=== PATIENT | female | born 1945 | race Caucasian/White ===

== ENCOUNTER → 2019-04-22 08:41 | Outpatient (CLI) | payer MEDICARE, SELFPAY ==
[2019-04-22 09:40] LABS: Absolute Lymphocyte Count 1.32 X10^3/uL (0.83-4.51); Absolute Neutrophil Count 2.2 X10^3/uL (2.0-7.7); Basophil# 0.03 X10^3/uL; Basophil% 0.8 % (0-1); Eosinophil# 0.05 X10^3/uL; Eosinophils% 1.3 % (0-5); Hematocrit 46.8 % (37-47); Hemoglobin 15.6 g/dL (12.0-15.0); Lymphocyte # 1.32 X10^3/ul (4.0); Lymphocyte % 33.4 % (19-41); Mean Corp Hgb Conc 33.3 g/dL (32-36); Mean Corpuscular Hgb 32.2 pg (27.0-32.0); Mean Corpuscular Volume 96.7 fL (81-99); Mean Platelet Vol. 13.4 fl (6.2-12.0); Monocyte# 0.36 X10^3/uL; Monocyte% 9.1 % (0-10); NRBC Flagged by Analyzer 0 % (0-5); Neutrophil # 2.18 X10^3/uL (2.7-7.7); Neutrophil % 55.1 % (47-70); Platelet Count 200 K/mm3 (150-450); RBC Distribution Width CV 11.5 % (11.6-14.6); RBC Distribution Width SD 41.1 fl (35.1-43.9); Red Blood Count 4.84 M/mm3 (4.2-5.4)
[2019-04-22 09:54] LABS: AST(SGOT) 23 U/L (15-37); Alanine Aminotransfer ALT/SGPT 20 U/L (13-56); Albumin, Serum 3.6 g/dL (3.2-5.0); Alkaline Phosphatase 61 U/L (45-117); Anion Gap 7 (5-15); BUN 16 mg/dL (7-18); BUN/Creat Ratio 22.1 RATIO (10-20); Chloride 107 mmol/L (98-107); Cholesterol 214 mg/dL (200); Creatinine, Serum 0.72 mg/dL (0.55-1.02); EST Glomerular Filtration Rate 84 mL/min (>60); Est Glom Filt Rate - Afr Amer 101 mL/min (>60); Globulin 3.5 g/dL (2.2-4.2); Glucose 96 mg/dL (74-106); High Density Lipoprotein 66 mg/dL; Potassium 3.6 mmol/L (3.5-5.1); Protein, Total 7.1 g/dL (6.4-8.2); Sodium Level 143 mmol/L (136-145); Triglycerides 81 mg/dL; Very Low Density Lipoprotein 16 mg/dL (5-40)
== END ==
PROVIDERS: Family Provider Family Medicine; PCP Family Medicine; Referring Provider Family Medicine; Visit Provider Family Medicine
DX: Z00.00 Encounter for general adult medical examination without abnormal findings (principal); I10 Essential (primary) hypertension
CPT/HCPCS: 36415; 80053; 80061; 85025

== ENCOUNTER 2021-09-25 09:16 | Outpatient (CLI) | payer MEDICARE, SELFPAY ==
--- NOTE | 2021-09-25 09:26 | US_ITS ---
STUDY: ULTRASOUND OF THE FEMALE PELVIS - COMPLETE REASON FOR EXAM: Female, 75 years old. Vaginal discharge. LMP: The patient is postmenopausal. TECHNIQUE: Transabdominal TECHNICAL QUALITY: Adequate. COMPARISON: None. FINDINGS: The uterus is anteverted and is in a midline position. The uterus measures 7.5 cm x 4.4 cm x 3.3 cm. Normal uterine cervix. The endometrium is thickened and measures 7.2 mm in thickness, and is hyperechoic. There is no demonstrated endometrial mass. There is a 1.3 cm x 1 cm x 0.7 cm fibroid in the body of the uterus. I.U.D. - The patient does not have an I.U.D. The right ovary is non-visualized. The left ovary is visualized. The left ovary measures 2 cm x 1.9 cm x 1.3 cm. There is no left ovarian cyst or ovarian mass. There is no visualized left adnexal mass or complex lesion. There is normal arterial and normal venous vascularity. There is no fluid in the cul-de-sac. The pre void volume of the bladder was 253 ml. US/Pelvic (Non ) IMPRESSION: Thickened endometrium measuring 7.2 mm. Small uterine fibroid. Electronically Signed: Bernard Pal MD at 12:35 EST ,
== END 2021-09-25 23:59 | disposition home or self-care (01) ==
LOC: US 09:21
PROVIDERS: PCP Family Medicine; Referring Provider Family Medicine; Visit Provider Family Medicine
DX: N89.8 Other specified noninflammatory disorders of vagina (principal); D25.9 Leiomyoma of uterus, unspecified; R93.89 Abnormal findings on diagnostic imaging of other specified body structures
CPT/HCPCS: 76856

== ENCOUNTER 2021-11-08 16:11 | Outpatient (CLI) | payer MEDICARE, SELFPAY ==
--- NOTE | 2021-11-08 | IMM_PTH ---
PATIENT: RAGHU DURAN LOC: [facility] U#:[id number] AGE/SX: 76/F ROOM: RE11/08/[address]: Dr. Jessica Calderon MD : 1945 BED: DIS: 11/08/2021 SPEC #: [id number] RECD: 11/12/21 12:27 STATUS: TARSHA REQ #: [id number] INDRA: 11/08/21 00:[address]: Jessica Calderon DEPT: IMMUNOHISTOCHEMISTRY RECD BY: Sarah Hu ENTERED: 11/12/21 12:28 SP TYPE: IMMUNO OTHR DR: Dr. Lora Salazar MD Tissues: Endometrium, NOS Procedures: CK14 (add) CK5-6 (add) KI-67 (add) P16 (add) P40 (add) Vimentin (initial) PHYSICIAN & INSTITUTION [place] [id number] SPECIMEN INFORMATION: Tissue Source: Endometrial biopsy Clinical Info: Abnormal uterine bleeding Specimen Number: [id number] CPT code: 07265, 23090 x5 METHODOLOGY: Deparaffinized sections of prefer/formalin-fixed tissue or PAP/DQ stained slides are incubated with monoclonal/polyclonal antibodies/oligonucleotide probes. Localization is made via biotin free immunoperoxidase method. Appropriate controls are performed and reacted as expected. Results on target cell population are indicated in the following table: RESULTS: ANTIBODY / CLONE RESULT Vimentin (V9) negative CK5-6 (D5 & 1684) positive CK14 (LL002) negative P40 (BC28) negative P16 (E6H4) positive, focal Ki-67 (30-9) positive, low These tests were developed and their performance characteristics determined by [facility]. They may not have been cleared or approved by the U.S. Food and Drug Administration. The FDA has determined that such clearance or approval is not necessary. The above immunohistochemical/dualISH markers are ordered and reviewed by the Pathologist. INTERPRETATION: Endometrium, biopsy: Detached atypical epithelial cells with squamoid features. AM:barry 11/13/2021
--- NOTE | 2021-11-08 | EMB_PTH ---
PATIENT: RAGHU DURAN LOC: [facility] U#:[id number] AGE/SX: 76/F ROOM: RE11/08/[address]: Dr. Jessica Calderon MD : 1945 BED: DIS: 11/08/2021 SPEC #: [id number] RECD: 11/08/21 16:05 STATUS: TARSHA MARTINEZ #: [id number] INDRA: 11/08/21 00:[address]: Jessica Calderon DEPT: SURGICAL PATHOLOGY RECD BY: Macario Anaya ENTERED: 11/09/21 10:45 SP TYPE: ENDOM BX/C ARIAN DR: Dr. Lora Salazar MD Tissues: Endometrium, NOS Procedures: Surgery Specimen Level IV HEADER OPERATION: Endometrial biopsy PRE-OP DIAGNOSIS: Abnormal uterine bleeding TISSUE SUBMITTED: Endometrial biopsy MICROSCOPIC DIAGNOSIS Endometrium, biopsy: Detached scant highly atypical epithelial cells with squamoid features Rare strips of benign superficial glandular mucosa. See comment. AM:barry 11/12/2021 COMMENT Immunohistochemistry ([id number]) supports the above diagnosis. Clinical correlation is necessary. Case has been reviewed in consultation with Dr. Elkins who concurs with the above diagnosis. IDC:KIMBERLY MICROSCOPIC DESCRIPTION Slides are reviewed. GROSS DESCRIPTION Received in fixative is one container labeled with the patient's name and designated endometrial biopsy. The specimen consists of multiple irregular fragments of rico mucoid tissue that in aggregate measure 1 x 1 x 0.2 cm. The specimen is totally submitted in one cassette. / KIMBERLY:barry 11/09/2021 TC:0 CPT: 47697
== END 2021-11-08 23:59 | disposition home or self-care (01) ==
LOC: LABSPEC 16:13
PROVIDERS: PCP Family Medicine; Visit Provider Obstetrics & Gynecology
DX: N93.9 Abnormal uterine and vaginal bleeding, unspecified (principal)
CPT/HCPCS: 88305; 88341; 88342

== ENCOUNTER 2022-01-22 10:02 | Day surgery (SDC) | payer MEDICARE, SELFPAY ==
[2022-01-22] VITALS (7 sets, daily range): BP systolic 122–156; BP diastolic 66–81; PULSE 57–71; RESP 16–18; TEMP 36.4–36.5; O2SAT 93–100; BMI 23.6
--- NOTE | 2022-01-22 | IMM_PTH ---
PATIENT: RAGHU DURAN LOC: [facility] [place] U#:[id number] AGE/SX: 76/F ROOM: RE01/22/[address]: Dr. Jessica Calderon MD : 1945 BED: DIS: 01/22/2022 SPEC #: [id number] RECD: 01/23/22 13:41 STATUS: TARSHA REKathrin #: [id number] INDRA: 01/22/22 00:[address]: Jessica Calderon DEPT: IMMUNOHISTOCHEMISTRY RECD BY: Sarah Hu ENTERED: 01/23/22 13:42 SP TYPE: IMMUNO OTHR DR: Dr. Lora Salazar MD Tissues: A - Uterine cervix, NOS Procedures: p16 (initial) KI-67 (add) P16 (add) PHYSICIAN & INSTITUTION [place] [id number] SPECIMEN INFORMATION: Tissue Source: A - Cervix Clinical Info: Atypical squamous cell changes, favor dysplasia, LGSIL Specimen Number: [id number] A2 & A5 CPT code: 27181, 99184 x3 METHODOLOGY: Deparaffinized sections of prefer/formalin-fixed tissue or PAP/DQ stained slides are incubated with monoclonal/polyclonal antibodies/oligonucleotide probes. Localization is made via biotin free immunoperoxidase method. Appropriate controls are performed and reacted as expected. Results on target cell population are indicated in the following table: RESULTS: ANTIBODY / CLONE RESULT Block A2 P16 (E6H4) positive, block-like Ki-67 (30-9) positive, moderate to high Block A5 P16 (E6H4) positive, block-like Ki-67 (30-9) positive, moderate to high These tests were developed and their performance characteristics determined by [facility]. They may not have been cleared or approved by the U.S. Food and Drug Administration. The FDA has determined that such clearance or approval is not necessary. The above immunohistochemical/dualISH markers are ordered and reviewed by the Pathologist. INTERPRETATION: A. Cervix, LEEP conization: Moderate to severe squamous dysplasia, THEODORA II-III (HSIL). AM:barry 01/24/2022
--- NOTE | 2022-01-22 | CER_PTH ---
PATIENT: RAGHU DURAN LOC: [facility] [place] U#:[id number] AGE/SX: 76/F ROOM: RE01/22/[address]: Dr. Jessica Calderon MD : 1945 BED: DIS: 01/22/2022 SPEC #: [id number] RECD: 01/22/22 13:32 STATUS: TARSHA MARTINEZ #: [id number] INDRA: 01/22/22 00:[address]: Jessica Calderon DEPT: SURGICAL PATHOLOGY RECD BY: Macario Anaya ENTERED: 01/22/22 13:32 SP TYPE: CERV OTHR DR: Dr. Lora Salazar MD Tissues: A - Uterine cervix, NOS B - Endometrium, NOS Procedures: Surgery Specimen Level IV HEADER OPERATION: LEEP cone PRE-OP DIAGNOSIS: Atypical squamous cell changes cervix of undetermined significance, favor dysplasia; LGSIL TISSUE SUBMITTED: A ? Cervix, B ? Endometrial curettings MICROSCOPIC DIAGNOSIS A. Cervix, LEEP conization: Moderate to severe squamous dysplasia with extension into endocervical glands (THEODORA II-III). Margins of excision are free of dysplasia. See comment. B. Endometrium, curettings: Rare detached fragments of epithelial cells with severe squamous dysplasia. AM:barry 01/23/2022 COMMENT A. Results from immunohistochemistry ([id number]) for surrogate HPV marker (p16) will be reported separately. Reference is made to the patient's previous endometrial biopsy ([id number]) in which detached scant highly atypical epithelial cells with squamoid features were identified. Case has been reviewed in consultation with Dr. Elkins who concurs with the above diagnosis. IDC:SJ MICROSCOPIC DESCRIPTION Slides are reviewed. GROSS DESCRIPTION A - Received in fixative is one container labeled with the patient's name and designated cervix. The specimen consists of a piece of rico, indurated tissue consistent with LEEP conization measuring 2 x 2.2 x 1.5 cm. No mucosal lesion is identified. Nonmucosal surface is inked black. The endocervical resection margin is inked blue. The specimen is not oriented. Also present in the container is a detached piece of rico soft tissue measuring 1 x 0.5 x 0.1 cm. Sections of the cervix reveal multiple cysts filled with mucoid material. Sensitizer sections are submitted in five cassettes as follows: 1 ? detached piece of tissue bisected, 2-5 ? cone biopsy specimen with each cassette containing one quadrant. B. Received in fixative is one container labeled with the patient's name and designated endometrial curettings. The specimen consists of multiple fragments of hemorrhagic mucoid tissue that in aggregate measure 1.5 x 1.5 x 0.2 cm. The specimen is totally submitted in one cassette. / SJ:rg 01/22/2022 TC:0 CPT: 74699 , 57871
--- NOTE | 2022-01-22 07:39 | HP.PCM_ITS ---
History and Physical Intake Visit Reasons:?biopsy FU Chief Complaint: biopsy follow up Associate Technician Required: No Is patient in pain?: No Allergies codeine Adverse Reaction (Unknown, Verified 11/08/21 13:28) unknowncortisone Adverse Reaction (Unknown, Verified 11/08/21 13:28) irregular mensesnaproxen [From Naprosyn] Adverse Reaction (Unknown, Verified 11/08/21 13:28) hives Medications NK? 11/08/21 [History Confirmed 11/26/21] Is last menstrual period known: No Post menopausal: Yes Patient : No : No PFSH Surgical History? H/O dilation and curettage H/O right heart catheterization Family History? Father Congestive heart failure (CHF) Social History? Smoking Status:? Never smoker alcohol intake:? never substance use type:? does not use caffeine:? Yes seatbelt use:? always do you feel safe at home:? Yes additional social history:? Bobby- Both are retired ? HPI biopsy FU Details: RAGHU DURAN is a 76 year old who presents for follow up of biopsy results.? colposcopy visually showed low grade but an EMB showed normal lining of the uterus with highly atypical squamous cells present.? she initially was evaluated for bloody discharge by her PCP and had an LGSIL pap. she denies any further bleeding or abnormal discharge, denies any pelvic pressure or pain.? she is asymptomatic at this time. Pregancy History ? ? ? 2 ? Elective abortions ? ? ? 0 Hx Para ? ? ? 2 ? Spontaneous abortions ? ? ? 0 Hx # Term Pregnancies ? ? ? 2 ? Ectopic pregnanciesA ? ? ? 0 Hx # Pregnancies ? ? ? 0 ? Multiple births ? ? ? 0 ? # of living children ? ? ? 2 ROS Const Constitutional: Reports system reviewed and no additional complaints, except as documented; Denies chills, fever(s), weight gain or weight loss GI GI: Reports as per HPI; Denies abdominal pain, bloating, constipation, cramping, nausea or vomiting : Reports as per HPI; Denies urinary frequency, urinary incontinence, urinary urgency, vaginal discharge or vaginal dryness Exam Const General: cooperative, healthy appearing, comfortable, no acute distress and well developed Orientation: alert HENWI Head: normal to inspection and normocephalic Ears: hearing grossly normal bilaterally and external ears normal Nose: external nose normal and nares normal Face and sinus: normal facial exam Neck Neck: normal visual inspection, no lymphadenopathy and trachea midline Thyroid: thyroid normal Resp Effort & Inspection: normal respiratory effort Musc Other: gross motor intact no deficits, full bilateral strength Skin General: no rashes or lesions noted Neuro Motor: muscle tone normal throughout Coding Level of Care Code Off vis,est,level 4 Diagnoses Atypical squamous cell changes cervix of undetermined significance favor dysplasia? R87.610 LGSIL (low grade squamous intraepithelial dysplasia)? Assessment and Plan Assessment and Plan (1) Atypical squamous cell changes cervix of undetermined significance favor dysplasia: ?Status:?Acute ?Comment: highly atypical cells on biopsy, proceed with LEEP (2) LGSIL (low grade squamous intraepithelial dysplasia): ?Status:?Acute ?Comment: biopsy highly atypical squamous cells proceed with LEEP ?Plan - Dr. Jessica Calderon MD: After discussing the patient's diagnosis and treatment plan options, patient wishes to proceed with surgical management.? I have discussed with the patient the risks, benefits, and alternatives of the procedure which include but are not limited to risks of anesthesia, bleeding, infection, possible damage to bowel, bladder, or surrounding vasculature which could lead to additional surgery to evaluate any complications.? Patient agrees to procedure and wishes to proceed.? ACOG/uptodate references given for additional information regarding procedure.? UPDATE- I have seen the patient and performed any clinically relevant updates to the history and physical exam. Jessica Calderon MD
--- NOTE | 2022-01-22 10:22 | EKG12_ITS ---
Test Reason : PRE OP Blood Pressure : / mmHG Vent. Rate : 076 BPM Atrial Rate : 076 BPM P-R Int : 140 ms QRS Dur : 084 ms QT Int : 394 ms P-R-T Axes : 066 019 049 degrees QTc Int : 443 ms Normal sinus rhythm Normal ECG Confirmed by LAMONTE FINNEGAN, ZABRINA ([id number]), deputy editor in chief ANA MARIA MCCARTHY ([id number]) on 01/25/2022 11:50:33 AM Referred By: Jessica Calderon Confirmed By:ZABRINA ABURTO MD
[2022-01-22] MEDS: Lactated Ringers 1,000 ML 15 ML IV (11:12)
[2022-01-22 11:16] LABS: Absolute Lymphocyte Count 1.02 X10^3/uL (0.83-4.51); Absolute Neutrophil Count 4.4 X10^3/uL (2.0-7.7); Basophil# 0.03 X10^3/uL; Basophil% 0.5 % (0-1); Eosinophil# 0.01 X10^3/uL; Eosinophils% 0.2 % (0-5); Hemoglobin 15.9 g/dL (12.0-15.0); Lymphocyte # 1.02 X10^3/ul (0.83-4.51); Lymphocyte % 17.6 % (19-41); Mean Corp Hgb Conc 33.8 g/dL (32-36); Mean Corpuscular Hgb 31.5 pg (27.0-32.0); Mean Corpuscular Volume 93.3 fL (81-99); Mean Platelet Vol. 12.6 fl (6.2-12.0); Monocyte# 0.28 X10^3/uL; Monocyte% 4.8 % (0-10); NRBC Flagged by Analyzer 0 % (0-5); Neutrophil # 4.42 X10^3/uL (2.7-7.7); Neutrophil % 76.6 % (47-70); Platelet Count 220 K/mm3 (150-450); RBC Distribution Width CV 11.9 % (11.6-14.6); RBC Distribution Width SD 41.1 fl (35.1-43.9); Red Blood Count 5.04 M/mm3 (4.2-5.4); White Blood Count 5.8 K/mm3 (4.4-11.0)
[2022-01-22 12:19] LABS: AST(SGOT) 23 U/L (15-37); Alanine Aminotransfer ALT/SGPT 20 U/L (13-56); Albumin, Serum 3.8 g/dL (3.2-5.0); Alkaline Phosphatase 65 U/L (45-117); Anion Gap 6 (5-15); BUN 14 mg/dL (7-18); Calcium,Total 9.5 mg/dL (8.5-10.1); Chloride 106 mmol/L (98-107); Creatinine, Serum 0.74 mg/dL (0.55-1.02); EST Glomerular Filtration Rate 81 mL/min (>60); Est Glom Filt Rate - Afr Amer 98 mL/min (>60); Estimated Creatinine Clearance 40.68 ml/min; Globulin 3.8 g/dL (2.2-4.2); Glucose 101 mg/dL (74-106); Potassium 3.9 mmol/L (3.5-5.1); Protein, Total 7.6 g/dL (6.4-8.2); Sodium Level 142 mmol/L (136-145)
[2022-01-22] MEDS: Lidocaine 1% (50 ml mdv) 50 ML Vial (12:32)
[2022-01-22] MEDS: Iodine/Potassium Iodide 14ML Bottle 1 DRP TOPICAL (12:33)
[2022-01-22] MEDS: FERRIC SUBSULFATE 8 GM SOLN (12:39)
--- NOTE | 2022-01-22 12:40 | PCM.OPRPT ---
Problems Associated Problem List Diagnoses (1) LGSIL (low grade squamous intraepithelial dysplasia): (2) Atypical squamous cell changes cervix of undetermined significance favor dysplasia: Report of Operation Pre-Operative Diagnosis: see problem list Post-Operative Diagnosis: same Surgery/Procedure Performed:: LEEP procedure Description of Surgical Findings:: grossly nl cervix mechanical integrity engineer: None Type of Anesthesia: General and Local Special Medications: monsels paste Specimen's removed: cervix ecc Drains: none Estimated Blood Loss (mL): 50 Fluids Replaced: crystalloid Description of Procedure: Paracervical block was placed with 1% lidocaine and using a loop electrode the outer part of the cervix was removed including the squamocolumnar junction. Endocervical curettings were taken and the base of the cervix was cauterized around the borders and the base to obtain excellent hemostasis. Monsel's paste was placed and patient was awoken and taken recovery in stable condition. Grafts/Implants Used: none Complications none Admit VTE Documentation VTE Present on Admission: No VTE Mechan Device Prophylaxis: SCD's Multi Select Codes Urinary/Genital Urinary/Genital CPT Codes: 98897 Endocervical curettage and 73310 LEEP
--- NOTE | 2022-01-22 12:41 | DCINST_ITS ---
Discharge Instructions Procedure LEEP Diet Discharge Diet: No restrictions Activity Discharge Activity: Return to Normal Activity and May Not Drive (while taking narcotic pain medications.) May resume sexual activity in: 4 weeks (Nothing in the vagina for 4 weeks.) Dressing / Incision Call your doctor if you observe: Fever of 101 or Higher and Using more than 1 pad per hour Follow Up Care Please Follow Up With: Jessica Calderon MD When: Call [phone] for follow-up appointment. Test Results: Test results from this visit will be discussed in further detail at your follow- up appointment, if applicable. Discharge Plan Admission Attending Provider: Jessica Calderon Primary Care Provider: Lora Salazar Discharge Orders/Prescriptions Prescriptions: No Action NK Referrals / Follow Up: Lora Salazar MD [Primary Care Provider] - Disposition Disposition (needs filled in before D/C Order can be placed): Home, Self Care
[2022-01-22] MEDS: Ketorolac 30 MG/ML Syringe IV (13:10)
== END 2022-01-22 14:12 | disposition home or self-care (01) ==
LOC: SDC 10:05 → AC 10:06
PROVIDERS: PCP Family Medicine; Referring Provider Obstetrics & Gynecology; Visit Provider Obstetrics & Gynecology
PROC: 0UBC7ZZ Excision of Cervix, Via Natural or Artificial Opening (ICD-10-PCS; CPT 57522; principal; 2022-01-22 12:00)
DX: D06.0 Carcinoma in situ of endocervix (principal)
CPT/HCPCS: 57522; 00940; 80053; 85025; 86850; 86900; 86901; 88305; 88341; 88342; 93005; J7120; J2405

== ENCOUNTER → 2023-01-10 | Outpatient (CLI) | payer MEDICARE, SELFPAY ==
[2023-01-16 13:07] LABS: HPV APTIMA, High Risk Negative (Negative)
== END | disposition home or self-care (01) ==
LOC: LABSPEC 15:21
PROVIDERS: PCP Family Medicine; Referring Provider Family Medicine; Visit Provider Family Medicine
DX: Z12.4 Encounter for screening for malignant neoplasm of cervix (principal); R87 Abnormal findings in specimens from female genital organs
CPT/HCPCS: 87624; 88175; G0145

== ENCOUNTER → 2023-06-13 | Outpatient (CLI) | payer MEDICARE, SELFPAY ==
[2023-06-13 15:20] LABS: Absolute Lymphocyte Count 1.11 X10^3/uL (0.83-4.51); Absolute Neutrophil Count 4.4 X10^3/uL (2.0-7.7); Basophil# 0.02 X10^3/uL; Basophil% 0.3 % (0-1); Eosinophil# 0.03 X10^3/uL; Eosinophils% 0.5 % (0-5); Hematocrit 43.7 % (37-47); Lymphocyte # 1.11 X10^3/ul (0.83-4.51); Lymphocyte % 18.2 % (19-41); Mean Corpuscular Hgb 31.3 pg (27.0-32.0); Mean Corpuscular Volume 97.5 fL (81-99); Mean Platelet Vol. 14.1 fl (6.2-12.0); Monocyte# 0.46 X10^3/uL; Monocyte% 7.5 % (0-10); NRBC Flagged by Analyzer 0 % (0-5); Neutrophil % 72.2 % (47-70); Platelet Count 197 K/mm3 (150-450); RBC Distribution Width CV 11.9 % (11.6-14.6); Red Blood Count 4.48 M/mm3 (4.2-5.4); White Blood Count 6.1 K/mm3 (4.4-11.0)
[2023-06-13 15:39] LABS: Anion Gap 3 (5-15); BUN 21 mg/dL (7-18); BUN/Creat Ratio 31.3 RATIO (10-20); Calcium,Total 8.8 mg/dL (8.5-10.1); Chloride 107 mmol/L (98-107); Creatinine, Serum 0.67 mg/dL (0.55-1.02); EST Glomerular Filtration Rate 90 mL/min (>60); Est Glom Filt Rate - Afr Amer 109 mL/min (>60); Glucose 97 mg/dL (74-106); Potassium 3.7 mmol/L (3.5-5.1); Sodium Level 140 mmol/L (136-145)
== END | disposition home or self-care (01) ==
LOC: BFHLAB 14:02
PROVIDERS: PCP Family Medicine; Referring Provider Family Medicine; Visit Provider Family Medicine
DX: I10 Essential (primary) hypertension (principal)
CPT/HCPCS: 36415; 80048; 85025

== ENCOUNTER → 2024-01-20 | Outpatient (CLI) | payer MEDICARE, SELFPAY ==
[2024-01-26 21:54] LABS: HPV Reflexed? NOT INDICATED
== END | disposition home or self-care (01) ==
LOC: LABSPEC 15:20
PROVIDERS: PCP Family Medicine; Referring Provider Family Medicine; Visit Provider Family Medicine
DX: Z12.4 Encounter for screening for malignant neoplasm of cervix (principal)
CPT/HCPCS: 88175; G0145

== ENCOUNTER → 2024-06-17 | Outpatient (CLI) | payer MEDICARE, SELFPAY ==
[2024-06-17 17:52] LABS: Absolute Lymphocyte Count 1.06 X10^3/uL (0.83-4.51); Basophil# 0.03 X10^3/uL; Basophil% 0.5 % (0-1); Eosinophil# 0.04 X10^3/uL; Eosinophils% 0.7 % (0-5); Hematocrit 43.2 % (37-47); Hemoglobin 14.4 g/dL (12.0-15.0); Lymphocyte # 1.06 X10^3/ul (0.83-4.51); Lymphocyte % 19.1 % (19-41); Mean Corp Hgb Conc 33.3 g/dL (32-36); Mean Corpuscular Hgb 31.7 pg (27.0-32.0); Mean Corpuscular Volume 95.2 fL (81-99); Monocyte# 0.43 X10^3/uL; Monocyte% 7.7 % (0-10); NRBC Flagged by Analyzer 0 % (0-5); Neutrophil # 3.97 X10^3/uL (2.7-7.7); Neutrophil % 71.5 % (47-70); Platelet Count 177 K/mm3 (150-450); Red Blood Count 4.54 M/mm3 (4.2-5.4); White Blood Count 5.6 K/mm3 (4.4-11.0)
[2024-06-17 18:03] LABS: Anion Gap 7 (5-15); BUN 17 mg/dL (7-18); BUN/Creat Ratio 24.2 RATIO (10-20); Calcium,Total 9.2 mg/dL (8.5-10.1); Chloride 105 mmol/L (98-107); EST Glomerular Filtration Rate 85 mL/min (>60); Est Glom Filt Rate - Afr Amer 103 mL/min (>60); Glucose 97 mg/dL (74-106); Potassium 3.4 mmol/L (3.5-5.1); Sodium Level 139 mmol/L (136-145)
== END | disposition home or self-care (01) ==
LOC: BFHLAB 14:15
PROVIDERS: PCP Family Medicine; Referring Provider Family Medicine; Visit Provider Family Medicine
DX: I10 Essential (primary) hypertension (principal)
CPT/HCPCS: 36415; 80048; 85025

== ENCOUNTER → 2025-01-20 | Outpatient (CLI) | payer MEDICARE, SELFPAY ==
[2025-01-25 10:08] LABS: HPV APTIMA, High Risk Negative (Negative)
== END | disposition home or self-care (01) ==
PROVIDERS: PCP Family Medicine; Visit Provider Family Medicine
DX: Z12.4 Encounter for screening for malignant neoplasm of cervix (principal); D06.9 Carcinoma in situ of cervix, unspecified
CPT/HCPCS: 88175; G0145

== ENCOUNTER → 2025-06-21 | Outpatient (CLI) | payer MEDICARE, SELFPAY ==
[2025-06-21 15:23] LABS: Hematocrit 45.7 % (37-47); Hemoglobin 15.1 g/dL (12.0-15.0); Immature Granulocytes Count 0.010 X10^3/uL (0.0-0.0); Mean Corp Hgb Conc 33.0 g/dL (32-36); Mean Corpuscular Volume 96.8 fL (81-99); NRBC Flagged by Analyzer 0 % (0-5); Platelet Count 174 K/mm3 (150-450); RBC Distribution Width CV 11.9 % (11.6-14.6); RBC Distribution Width SD 42.9 fl (35.1-43.9); Red Blood Count 4.72 M/mm3 (4.2-5.4); White Blood Count 5.1 K/mm3 (4.4-11.0)
[2025-06-21 15:41] LABS: Anion Gap 11 (5-15); BUN 14 mg/dL (4-19); BUN/Creat Ratio 20.0 RATIO (10-20); Calcium,Total 9.5 mg/dL (7.6-11.0); Carbon Dioxide 26.4 mmol/L (21.0-32.0); Chloride 105 mmol/L (98-108); Glucose 100 mg/dL (70-99); Potassium 3.8 mmol/L (3.3-5.1)
--- OUTSIDE RECORDS SUMMARY | 2025-06-21 16:02 | XMS RPT_ITS | CCD ---
Author Organization [facility] Care Team Providers Care Bus Operator Name Role Phone Dr. Lora Salazar Primary Care Provider Dr. Lora Salazar Attending Provider [phone] Dr. Lora Salazar Referring Provider [phone] Dr. Jessica Calderon Attending Provider [phone] Dr. Lora Salazar Primary Care Provider Dr. Lora Salazar Attending Provider [phone] Dr. Jessica Calderon Other Provider [phone] ERICKA CHAVIRA DPOpal Admitting Unavailable LORA SALAZAR Consulting Unavailable ERICKA CHAVIRA DPOpal Attending Unavailable ERICKA CHAVIRA DPM Primary Care Unavailable PROVIDER, UNKNOWN Consulting Unavailable PROVIDER, UNKNOWN Consulting Unavailable Dr. Lora Salazar MD Primary Care Provider Dr. Lora Salazar MD Attending Provider Lora Salazar Attending Unavailable Lora Salazar Referring Unavailable Lora Salazar Primary Care Unavailable Lora Salazar Attending Unavailable Lora Salazar Primary Care Unavailable Allergies Allergy Classification Reported Allergen(s) Allergy Type Date of Onset Reaction(s) Facility (5 sources) Codeine Drug Allergy 2 unknown [facility] (5 sources) [facility] Naproxen Drug Allergy 2 hives [facility] (1 source) Codeine Drug Allergy 2 [facility] (1 source) Cortisone Drug Allergy 2 [facility] (1 source) Naproxen Drug Allergy 2 [facility] Problems Problem Classification Problem Date Documented Date Episodic/Chronic Cancer of cervix (6 sources) Cervical atypism; Translations: [Atypical squamous cells of undetermined significance on cytologic smear of cervix (ASC-US)] Episodic Comment on above: highly atypical cell s on biopsy, proceed with LEEP, THEODORA III with margins clear Essential hypertension (4 sources) Hypertensive disorder; Translations: [Essential (primary) hypertension] Onset: 07-14-2024 02-14-2022 Chronic Comment on above: HX OF TAKING HCTZ. P T TOOK HERSELF OFF OF, encouraged to restart and fu with PCP Menopausal disorders (7 sources) Postmenopausal bleeding; Translations: [Postmenopausal bleeding] Chronic Comment on above: emb done, US showed 7 mm lining. Other screening for suspected conditions (not mental disorders or infectious disease) (1 source) Encounter for screening for malignant neoplasm of cervix; Translations: [Encounter for screening for malignant neoplasm of cervix] Onset: 01-26-2025 Episodic Residual codes; unclassified (9 sources) Abnormal cytology findings; Translations: [Low grade squamous intraepithelial lesion (LGSIL)] Episodic Comment on above: biopsy highly atypic al squamous cells proceed with LEEP, THEODORA III with margins clear Residual codes; unclassified (3 sources) History of loop electrosurgical excision procedure; Translations: [Other specified postprocedural states] 02-14-2022 Episodic Comment on above: THEODORA III on path, rep eat pap in 1 year. needs to continue pap screening per standard recommendations indefinitely Results Test Name Value Interpretation Reference Range Facility PAP IG HPV HR APTIMAon 01-25 ADEQ Comment Normal . [facility] Comment on above: Order Comment: Speci men Comment: No. of containers..01 ThinPrep Vial Result Comment: Sati sfactory for evaluation. Endocervical component may not be distinguished in cases of atrophy. Performed By: #### L 7400.0377 #### [facility] [address] [place], [address] COMM . Normal . [facility] Comment on above: Order Comment: Speci men Comment: No. of containers..01 ThinPrep Vial Performed By: #### L 7400.0377 #### [facility] [address] [place], [place], [id number] COMMENT Comment Normal . [facility] Comment on above: Order Comment: Speci men Comment: No. of containers..01 ThinPrep Vial Result Comment: This liquid based ThinPrep(R) pap test was screened with the use of an image guided system. Performed By: #### L 7400.0377 #### [facility] [address] [place], [address] DIAG Comment Normal . [facility] Comment on above: Order Comment: Speci men Comment: No. of containers..01 ThinPrep Vial Result Comment: NEGA TIVE FOR INTRAEPITHELIAL LESION OR MALIGNANCY. CELLULAR CHANGES ASSOCIATED WITH ATROPHY ARE PRESENT. Performed By: #### L 7400.0377 #### [facility] [address] [place], [address] HPV APTIMA, HR Negative Normal Negative [facility] Comment on above: Order Comment: Speci men Comment: No. of containers..01 ThinPrep Vial Result Comment: This nucleic acid amplification test detects fourteen high- risk HPV types (16,18,31,33,35,39,45,51,52,56,58,59,66,68) without differentiation. Performed at: [address] [id number] Screen Printing Machine Loader Unloader: Renetta Denson MD, Phone: [phone] Performed at: = - [address] [id number] [employer] Printing Machine Loader Unloader: Renetta Denson MD, Phone: [phone] Performed By: #### L 7400.0377 #### [facility] [address] [place], [place], [address] PAPSMR Comment Normal . [facility] Comment on above: Order Comment: Speci men Comment: No. of containers..01 ThinPrep Vial Result Comment: The Pap smear is a screening test designed to aid in the detection of premalignant and malignant conditions of the uterine cervix. It is not a diagnostic procedure and should not be used as the sole means of detecting cervical cancer. Both false-positive and false-negative reports do occur. Performed By: #### L 7400.0377 #### [facility] [address] [place], [place], [address] PERFORM Comment Normal . [facility] Comment on above: Order Comment: Speci men Comment: No. of containers..01 ThinPrep Vial Result Comment: Lorraine Gray, Senior Linux Administrator Performed By: #### L 7400.0377 #### [facility] [address] [place], [place], [id number] Cervical or vagninal specime n microscopic examination by cytology stain (reported asOrdered By: Lora Salazar on 01-20-2025 Cytology report Cyto stain Doc (Cvx/Vag) Comment . [facility] Comment on above: The Pap smear is a s creening test designed to aid in thedetection of premalignant and malignant conditions of theuterine cervix. It is not a diagnostic procedure andshould not be used as the sole means of detecting cervicalcancer. Both false-positive and false-negative reports dooccur. Detection in cervical specim en of any of human papilloma virus (HPV) 16, 18, 31, 33,Ordered By: Lora Salazar on 01-20-2025 HPV 16+18+31+33+35+39+45+5 1+52+56+58+59+66+68 DNA Probe+sig amp Ql (Cvx) Negative Negative [facility] Comment on above: This nucleic acid am plification test detects fourteen high- risk HPV types (16,18,31,33,35,39,45,51,52,56,58,59,66,68)without differentiation.Performed at: [address] [id number] Director: Renetta Denson MD, Phone: [phone] at: =[address] [id number] Director: Renetta Denson MD, Phone: [phone] Laboratory - CytologyOrdered By: Lora Salazar on 01-20-2025 Senior Linux Administrator Cyto stain Nom (Cvx/Vag) [ID] Comment . [facility] Comment on above: Jalen Miles [email or web address] Laboratory - Miscellaneous t estsOrdered By: Lora Salazar on 01-20-2025 Service comment (Unsp spec) [Interp] . . [facility] No Panel InformationOrdered By: Lora Salazar on 01-20-2025 Pap Smear Specimen Adequacy Comment . [facility] Comment on above: Satisfactory for meme luation. Endocervical component may not bedistinguished in cases of atrophy. Basic Metabolic Profile (BMP )on 06-17-2024 BUN/CRE 24.2 RATIO High - [facility] Comment on above: Performed By: #### L 100.0100, L500.2500 #### [facility] [address] [place], [address] CA,Total 9.2 mg/dL Normal 8.5-10.1 [facility] Comment on above: Performed By: #### L 100.0100, L500.2500 #### [facility] [address] [place], [address] Chloride [Moles/Vol] 105 mmol/L Normal 98-107 [facility] Comment on above: Performed By: #### L 100.0100, L500.2500 #### [facility] [address] [place], [address] CO2 [Moles/Vol] 27.0 mmol/L Normal 21.0-32.0 [facility] Comment on above: Performed By: #### L 100.0100, L500.2500 #### [facility] [address] [place], [address] Creatinine [Mass/Vol] 0.70 mg/dL Normal 0.55-1.02 [facility] Comment on above: Result Comment: The validity of the calculated GFR GFRAA in patients over 70 years has not been determined. Clinical correlation is essential. Performed By: #### L 100.0100, L500.2500 #### [facility] [address] [place], [address] EST GFR - AA 103 mL/min Normal >60 [facility] Comment on above: Result Comment: Afri can Cymraes GFR Calc Performed By: #### L 100.0100, L500.2500 #### [facility] [address] [place], [address] GAP 7 Normal 5-15 [facility] Comment on above: Performed By: #### L 100.0100, L500.2500 #### [facility] [address] [place], [address] GFR/1.73 sq M.predicted among non-blacks MDRD (S/P/Bld) [Vol rate/Area] 85 mL/min/{1.73_m2} Normal >60 [facility] Comment on above: Result Comment: Non- GFR Calc Performed By: #### L 100.0100, L500.2500 #### [facility] [address] [place], [address] Glucose [Mass/Vol] 97 mg/dL Normal 74-106 [facility] Comment on above: Performed By: #### L 100.0100, L500.2500 #### [facility] [address] [place], [address] Potassium [Moles/Vol] 3.4 mmol/L Low 3.5-5.1 [facility] Comment on above: Performed By: #### L 100.0100, L500.2500 #### [facility] [address] [place], [address] Sodium [Moles/Vol] 139 mmol/L Normal 136-145 [facility] Comment on above: Performed By: #### L 100.0100, L500.2500 #### [facility] [address] [place], [address] Urea nitrogen [Mass/Vol] 17 mg/dL Normal 7-18 [facility] Comment on above: Performed By: #### L 100.0100, L500.2500 #### [facility] [address] [place], [address] CBC W/Diff, Automatedon 06-04 MPV TNP Normal 6.2-12.0 [facility] Comment on above: Performed By: #### L 100.0100, L500.2500 #### [facility] [address] [place], [address] Absolute Lymph 1.06 X10 3/uL Normal 0.83-4.51 [facility] Comment on above: Performed By: #### L 100.0100, L500.2500 #### [facility] [address] [place], [address] Absolute Neut 4.0 X10 3/uL Normal 2.0-7.7 [facility] Comment on above: Performed By: #### L 100.0100, L500.2500 #### [facility] [address] [place], [address] Basophils/100 WBC (Bld) 0.5 % Normal 0-1 [facility] Comment on above: Performed By: #### L 100.0100, L500.2500 #### [facility] [address] [place], [address] Eosinophils/100 WBC (Bld) 0.7 % Normal 0-5 [facility] Comment on above: Performed By: #### L 100.0100, L500.2500 #### [facility] [address] [place], [address] Erythrocyte distribution width (RBC) [Ratio] 12.0 % Normal 11.6-14.6 [facility] Comment on above: Performed By: #### L 100.0100, L500.2500 #### [facility] [address] [place], [address] Hematocrit (Bld) [Volume fraction] 43.2 % Normal 37-47 [facility] Comment on above: Performed By: #### L 100.0100, L500.2500 #### [facility] [address] [place], [address] Hemoglobin (Bld) [Mass/Vol] 14.4 g/dL Normal 12.0-15.0 [facility] Comment on above: Performed By: #### L 100.0100, L500.2500 #### [facility] [address] [place], [address] IG% 0.500 Normal 0.0-0.9 [facility] Comment on above: Result Comment: IG% - Immature Granulocytes (promyelocytes, myelocytes and metamyelocytes) > 1% indicates that a LEFT SHIFT is Present. Performed By: #### L 100.0100, L500.2500 #### [facility] [address] [place], [address] Lymphocytes/100 WBC (Bld) 19.1 % Normal 19-41 [facility] Comment on above: Performed By: #### L 100.0100, L500.2500 #### [facility] [address] [place], [address] MCH (RBC) [Entitic mass] 31.7 pg Normal 27.0-32.0 [facility] Comment on above: Performed By: #### L 100.0100, L500.2500 #### [facility] [address] [place], [address] MCHC (RBC) [Mass/Vol] 33.3 g/dL Normal 32-36 [facility] Comment on above: Performed By: #### L 100.0100, L500.2500 #### [facility] [address] [place], [address] MCV (RBC) [Entitic vol] 95.2 fL Normal 81-99 [facility] Comment on above: Performed By: #### L 100.0100, L500.2500 #### [facility] [address] [place], [address] Monocytes/100 WBC (Bld) 7.7 % Normal 0-10 [facility] Comment on above: Performed By: #### L 100.0100, L500.2500 #### [facility] [address] [place], [address] Neutrophils/100 WBC (Bld) 71.5 % High 47-70 [facility] Comment on above: Performed By: #### L 100.0100, L500.2500 #### [facility] [address] [place], [address] Nucleated RBC (Bld) [#/Vol] 0 10*3/uL Normal 0-5 [facility] Comment on above: Performed By: #### L 100.0100, L500.2500 #### [facility] [address] [place], [address] Platelets (Bld) [#/Vol] 177 10*3/uL Normal 150-450 [facility] Comment on above: Performed By: #### L 100.0100, L500.2500 #### [facility] [address] [place], [address] RBC (Bld) [#/Vol] 4.54 10*6/uL Normal 4.2-5.[address] [facility] Comment on above: Performed By: #### L 100.0100, L500.2500 #### [facility] [address] [place], [address] RDW SD 42.0 fl Normal 35.1-43.9 [facility] Comment on above: Performed By: #### L 100.0100, L500.2500 #### [facility] [address] [place], [address] WBC (Bld) [#/Vol] 5.6 10*3/uL Normal 4.4-11.0 [facility] Comment on above: Performed By: #### L 100.0100, L500.2500 #### [facility] [address] [place], [address] Absolute lymphocyte countOrd ered By: Lora Salazar on 06-13-2023 Lymphocytes Auto (Unsp spec) [#/Vol] 1.11 10*3/uL 0.83-4.51 [facility] Basophil percentageOrdered B y: Lora Salazar on 06-13-2023 Basophils/100 WBC (Bld) 0.3 % 0-1 [facility] Chloride [Moles/Vol] 107 mmol/L 98-107 [facility] Eosinophils/100 WBC (Bld) 0.5 % 0-5 [facility] Glucose [Mass/Vol] 97 mg/dL 74-106 [facility] Neutrophils (Bld) [#/Vol] 4.4 10*3/uL 2.0-7.7 [facility] Neutrophils/100 WBC (Bld) 72.2 % 47-70 [facility] Potassium [Moles/Vol] 3.7 mmol/L 3.5-5.1 [facility] Sodium [Moles/Vol] 140 mmol/L 136-145 [facility] WBC (Bld) [#/Vol] 6.1 10*3/uL 4.4-11.0 [facility] Blood erythrocytes count (nu mber/volume)Ordered By: Lora Salazar on 06-13-2023 RBC (Bld) [#/Vol] 4.48 10*6/uL 4.2-5.[address] [facility] Blood hemoglobin measurement (mass/volume)Ordered By: Lora Salazar on 06-13-2023 Hemoglobin (Bld) [Mass/Vol] 14.0 g/dL 12.0-15.0 [facility] Blood lymphocytes/100 leukoc ytesOrdered By: Lora Salazar on 06-13-2023 Lymphocytes/100 WBC (Bld) 18.2 % 19-41 [facility] Blood monocytes/100 leukocyt esOrdered By: Lora Salazar on 06-13-2023 Monocytes/100 WBC (Bld) 7.5 % 0-10 [facility] Blood platelet mean volumeOr dered By: Lora Salazar on 06-13-2023 Platelet mean volume (Bld) [Entitic vol] 14.1 fL 6.2-12.0 [facility] Determination of erythrocyte mean corpuscular volume (MCV)Ordered By: Lora Salazar on 06-13-2023 MCV (RBC) [Entitic vol] 97.5 fL 81-99 [facility] Hematocrit Auto (Bld) [Volum e fraction]Ordered By: Lora Salazar on 06-13-2023 Hematocrit (Bld) [Volume fraction] 43.7 % 37-47 [facility] - Chemistry and C hemistry - challengeOrdered By: Lora Salazar on 06-13-2023 CO2 [Moles/Vol] 30.0 mmol/L 21.0-32.0 [facility] Urea nitrogen/Creatinine [Mass ratio] 31.3 mg/mg 10-20 [facility] - Hematology and Cell countsOrdered By: Lora Salazar on 06-13-2023 Erythrocyte distribution width (RBC) [Entitic vol] 43.0 fL 35.1-43.9 [facility] Erythrocyte distribution width (RBC) [Ratio] 11.9 % 11.6-14.6 [facility] Immature granulocytes/100 WBC (Bld) 1.300 % 0.0-0.9 [facility] Comment on above: IG% - Immature Granu locytes (promyelocytes, myelocytes and metamyelocytes) > 1% indicates that a LEFT SHIFT is Present. MCH (RBC) [Entitic mass] 31.3 pg 27.0-32.0 [facility] Nucleated RBC/100 WBC (Bld) [Ratio] 0 % 0-5 [facility] MCHC Auto (RBC) [Mass/Vol]Or dered By: Lora Salazar on 06-13-2023 MCHC (RBC) [Mass/Vol] 32.0 g/dL 32-36 [facility] No Panel InformationOrdered By: Lora Salazar on 06-13-2023 Estimated GFR (MDRD) Amer 109 mL/min >60 [facility] Comment on above: GFR Calc Estimated GFR (MDRD) Non-Af Amer 90 mL/min >60 [facility] Comment on above: Non- GFR Calc Platelets bldOrdered By: Amado Salazar on 06-13-2023 Platelets (Bld) [#/Vol] 197 10*3/uL 150-450 [facility] Serum or plasma calcium lionel urement (mass/volume)Ordered By: Lora Salazar on 06-13-2023 Calcium [Mass/Vol] 8.8 mg/dL 8.5-10.1 [facility] Serum or plasma creatinine m easurement (mass/volume)Ordered By: Lora Salazar on 06-13-2023 Creatinine [Mass/Vol] 0.67 mg/dL 0.55-1.02 [facility] Comment on above: The validity of the calculated GFR & GFRAA in patients over 70 years has not been determined. Clinical correlation is essential. Serum or plasma urea nitroge n measurement (mass/volume)Ordered By: Lora Salazar on 06-13-2023 Urea nitrogen [Mass/Vol] 21 mg/dL 7-18 [facility] Thin prep Papanicolaou smear with manual screeningOrdered By: Lora Salazar on 06-13-2023 Thin prep Papanicolaou smear with manual screening 3 5-15 [facility] FOOT COMPLETE RTon 2 FOOT COMPLETE RT [place] [address] Patient: RAGHU DURAN Phone#: : [phone] Age: 76 Gender: F Pt. Type: Out Account: [id number] Location: Ordering: ERICKA CHAVIRA Exam Date: 05/14/2022/12:44 Family Phys: LORA SALAZAR Charge Code: 618249 Physician: Starr Order #: [id number] Dose#: PROCEDURE: X-RAY FOOT RT COMPLETE MIN 3 VIEWS COMPARISON: [facility], XR, FOOT RT COMPLETE, 06/26/2016, 11:22. INDICATIONS: Injury. FINDINGS: BONES: 8 millimeter calcaneal spur is present. Mild degenerative changes are present at the 1st and 2nd metatarsophalangeal joints. There is subcortical cyst involving the head of the 2nd metatarsal. SOFT TISSUES: Negative. No visible soft tissue swelling. EFFUSION: None visible. OTHER: Negative. CONCLUSION: 1. Degenerative changes are present without significant change since previous exam. Dictated by: Soo Ashford MD on 05/14/2022 at 16:03 Approved by: Soo Ashford MD on 05/14/2022 at 16:06 Normal [facility] Absolute lymphocyte counton 01-22-2022 Lymphocytes Auto (Unsp spec) [#/Vol] 1.02 10*3/uL 0.83-4.51 [facility] Work Phone: Basophil percentageon 2021 Bilirubin [Mass/Vol] 0.50 mg/dL 0.20-1.00 [facility] Work Phone: Comment on above: For patients on eltr ombopag therapy, use of Dimension Carlin TBIL is not recommended. Chloride [Moles/Vol] 106 mmol/L 98-107 [facility] Work Phone: Glucose [Mass/Vol] 101 mg/dL 74-106 [facility] Work Phone: Comment on above: Fasting Glucose resu lt from 100 to 125 mg/dL suggests IMPAIRED HOMEOSTASIS per A.D.A. criteria. Potassium [Moles/Vol] 3.9 mmol/L 3.5-5.1 [facility] Work Phone: Comment on above: Slight Hemolysis, Re sult may be falsely increased. Protein [Mass/Vol] 7.6 g/dL 6.4-8.2 [facility] Work Phone: Sodium [Moles/Vol] 142 mmol/L 136-145 [facility] Work Phone: Basophils/100 WBC (Bld) 0.5 % 0-1 [facility] Work Phone: Eosinophils/100 WBC (Bld) 0.2 % 0-5 [facility] Work Phone: Neutrophils (Bld) [#/Vol] 4.4 10*3/uL 2.0-7.7 [facility] Work Phone: [phone] Neutrophils/100 WBC (Bld) 76.6 % 47-70 [facility] Work Phone: [phone] WBC (Bld) [#/Vol] 5.8 10*3/uL 4.4-11.0 [facility] Work Phone: Blood erythrocytes count (nu mber/volume)on 01-22-2022 RBC (Bld) [#/Vol] 5.04 10*6/uL 4.2-5.[address] [facility] Work Phone: [phone] Blood hemoglobin measurement (mass/volume)on 01-22-2022 Hemoglobin (Bld) [Mass/Vol] 15.9 g/dL 12.0-15.0 [facility] Work Phone: Blood lymphocytes/100 leukoc yteson 01-22-2022 Lymphocytes/100 WBC (Bld) 17.6 % 19-41 [facility] Work Phone: [phone] Blood monocytes/100 leukocyt eson 01-22-2022 Monocytes/100 WBC (Bld) 4.8 % 0-10 [facility] Work Phone: Blood platelet mean volumeon 01-22-2022 Platelet mean volume (Bld) [Entitic vol] 12.6 fL 6.2-12.0 [facility] Work Phone: Determination of erythrocyte mean corpuscular volume (MCV)on 01-22-2022 MCV (RBC) [Entitic vol] 93.3 fL 81-99 [facility] Work Phone: Hematocrit Auto (Bld) [Volum e fraction]on 01-22-2022 Hematocrit (Bld) [Volume fraction] 47.0 % 37-47 [facility] Work Phone: [phone] Laboratory - Chemistry and C hemistry - challengeon 01-22-2022 ALP [Catalytic activity/Vol] 65 U/L 45-117 [facility] Work Phone: [phone] ALT [Catalytic activity/Vol] 20 U/L 13-56 [facility] Work Phone: [phone] CO2 [Moles/Vol] 30.0 mmol/L 21.0-32.0 [facility] Work Phone: [phone] Globulin (S) [Mass/Vol] 3.8 g/dL 2.2-4.2 [facility] Work Phone: [phone] Urea nitrogen/Creatinine [Mass ratio] 19.0 mg/mg 10-20 [facility] Work Phone: [phone] Laboratory - Hematology and Cell countson 01-22-2022 Erythrocyte distribution width (RBC) [Entitic vol] 41.1 fL 35.1-43.9 [facility] Work Phone: [phone] Erythrocyte distribution width (RBC) [Ratio] 11.9 % 11.6-14.6 [facility] Work Phone: [phone] Immature granulocytes/100 WBC (Bld) 0.300 % 0.0-0.9 [facility] Work Phone: [phone] Comment on above: IG% - Immature Granu locytes (promyelocytes, myelocytes and metamyelocytes) > 1% indicates that a LEFT SHIFT is Present. MCH (RBC) [Entitic mass] 31.5 pg 27.0-32.0 [facility] Work Phone: [phone] Nucleated RBC/100 WBC (Bld) [Ratio] 0 % 0-5 [facility] Work Phone: [phone] MCHC Auto (RBC) [Mass/Vol]on 01-22-2022 MCHC (RBC) [Mass/Vol] 33.8 g/dL 32-36 [facility]: No Panel Informationon 01-22 Estimated Creatinine Clearance Calc 40.68 ml/min [facility] Work Phone: Estimated GFR (MDRD) Amer 98 mL/min >60 [facility] Work Phone: Comment on above: GFR Calc Estimated GFR (MDRD) Non-Af Amer 81 mL/min >60 [facility] Work Phone: Comment on above: Non- GFR Calc Platelets bldon 01-22-2022 Platelets (Bld) [#/Vol] 220 10*3/uL 150-450 [facility] Work Phone: Serum or plasma albumin lionel urement (mass/volume)on 01-22-2022 Albumin [Mass/Vol] 3.8 g/dL 3.2-5.0 [facility] Work Phone: Serum or plasma albumin/glob ulin mass ratioon 01-22-2022 Albumin/Globulin [Mass ratio] 1.0 {ratio} 0.9-2.4 [facility] Work Phone: Serum or plasma calcium lionel urement (mass/volume)on 01-22-2022 Calcium [Mass/Vol] 9.5 mg/dL 8.5-10.1 [facility] Work Phone: Serum or plasma creatinine m easurement (mass/volume)on 01-22-2022 Creatinine [Mass/Vol] 0.74 mg/dL 0.55-1.02 [facility] Work Phone: Comment on above: The validity of the calculated GFR & GFRAA in patients over 70 years has not been determined. Clinical correlation is essential. Serum or plasma urea nitroge n measurement (mass/volume)on 01-22-2022 Urea nitrogen [Mass/Vol] 14 mg/dL 7-18 [facility] Work Phone: Thin prep Papanicolaou smear with manual screeningon 01-22-2022 Thin prep Papanicolaou smear with manual screening 23 U/L 15-37 [facility] [facility] Work Phone: [phone] Comment on above: Slight Hemolysis, Re sult may be falsely increased. Thin prep Papanicolaou smear with manual screening 6 5-15 [facility] Work Phone: Vital Signs Date Time Vital Sign Value Performing Clinician Roberto bean 01-22-2022 13:10-0400 Body temperature 97.7 [degF] Dr. Lora Salazar Work Phone: [facility] Work Phone: 01-22-2022 13:10-0400 Diastolic blood pressure 81 mm[Hg] Dr. Lora Salazar Work Phone: [facility] Work Phone: 01-22-2022 13:10-0400 Heart rate 60 /min Dr. Lora Salazar Work Phone: [facility] Work Phone: 01-22-2022 13:10-0400 Respiratory rate 16 /min Dr. Lora Salazar Work Phone: [facility] Work Phone: 01-22-2022 13:10-0400 SaO2% (BldA) [Mass fraction] 93 % Dr. Lora Salazar Work Phone: [facility] Work Phone: 01-22-2022 13:10-0400 Systolic blood pressure 130 mm[Hg] Dr. Lora Salazar Work Phone: [facility] Work Phone: 01-22-2022 10:42-0400 Body height 162.[address] Lora Salazar Work Phone: [facility] Work Phone: 01-22-2022 10:42-0400 Body mass index (BMI) [Ratio] 23.6 kg/m2 Dr. Lora Salazar Work Phone: [facility] Work Phone: 01-22-2022 10:42-0400 Body weight 62.[address] Lora Salazar Work Phone: [facility] Work Phone: 11-26-2021 11:27-0400 Body mass index (BMI) [Ratio] 24.6 kg/m2 Dr. Lora Salazar Work Phone: [facility] Work Phone: 11-26-2021 11:27-0400 Body weight 63.[address] Lora Salazar Work Phone: [facility] Work Phone: 11-26-2021 11:27-0400 Diastolic blood pressure 92 mm[Hg] Dr. Lora Salazar Work Phone: [facility] Work Phone: 11-26-2021 11:27-0400 Systolic blood pressure 130 mm[Hg] Dr. Lora Salazar Work Phone: [facility] Work Phone: 11-08-2021 13:27-0400 Body mass index (BMI) [Ratio] 25.1 kg/m2 Dr. Lora Salazar Work Phone: [facility] Work Phone: 11-08-2021 13:27-0400 Body weight 64.[address] Lora Salazar Work Phone: [facility] Work Phone: 11-08-2021 13:27-0400 Diastolic blood pressure 104 mm[Hg] Dr. Lora Salazar Work Phone: [facility] Work Phone: 11-08-2021 13:27-0400 Systolic blood pressure 142 mm[Hg] Dr. Lora Salazar Work Phone: [facility] Work Phone: 11-08-2021 13:27-0400 Body height 160.[address] Lora Salazar Work Phone: [facility] Work Phone: 11-08-2021 13:27-0400 Body mass index (BMI) [Ratio] 25.1 kg/m2 Dr. Lora Salazar Work Phone: [facility] Work Phone: 11-08-2021 13:27-0400 Body weight 64.[address] Lora Salazar Work Phone: [facility] Work Phone: 11-08-2021 13:27-0400 Diastolic blood pressure 104 mm[Hg] Dr. Lora Salazar Work Phone: [facility] Work Phone: 11-08-2021 13:27-0400 Systolic blood pressure 142 mm[Hg] Dr. Lora Salazar Work Phone: [facility] Work Phone: Encounters Encounter Date Encounter Type Care Provider Facility Start: 01-20-2025 End: 01-20-[address] Lora Salazar MD Work Phone: [facility] Work Phone: Start: 01-20-2025 End: 01-20-[address] Lora Salazar MD -Laboratory Specimen Work Phone: Start: 01-20-2025 End: 01-20-2025 ambulatory Lora Salazar Facility:[facility] Start: 06-17-2024 End: 06-17-2024 ambulatory Loranellie Salazar Facility:[facility] Start: 06-13-2023 End: 06-13-2023 ambulatory [facility] Work Phone: Start: 06-13-2023 End: 06-13-2023 Patient encounter procedure [facility] Start: 01-10-2023 End: 01-10-2023 ambulatory [facility] Work Phone: Start: 01-10-2023 End: 01-10-2023 Patient encounter procedure [facility]-Laboratory, Specimen Start: 05-14-2022 End: 05-14-2022 ambulatory ERICKA [facility] Start: 01-22-2022 End: 01-22-2022 Admission to same day surgery center [facility] Start: 01-22-2022 Non-patient / Non-visit Dr. Juan Daniel Salazar Work Phone: [facility] Start: 11-26-2021 End: 11-26-[address] [facility] Start: 11-08-2021 End: 11-08-[address] Lora Salazar Work Phone: [facility]-Laboratory, Specimen Start: 11-08-2021 End: 11-08-[address] [facility] Salazar [facility] Start: 09-25-2021 Non-patient / Non-visit Dr. Juan Daniel Salazar Work Phone[facility] Start: 09-25-2021 End: 09-25-[address] Lora Salazar Work Phone: [facility] Start: 09-18-2021 Non-patient / Non-visit Dr. Juan Daniel Salazar Work Phone: [facility] Procedures Date Procedure Procedure Detail Performing Clinician Start: 01-20-2025 Liquid based cervica l cytology screening Dr. Lora Salazar MD Work Phone: Comment on above: NEGATIVE FOR INTRAEP ITHELIAL LESION OR MALIGNANCY.CELLULAR CHANGES ASSOCIATED WITH ATROPHY ARE PRESENT. This liquid based Th inPrep(R) pap test was screened withthe use of an image guided system. Start: 01-22-2022 Leep Cone (Not Applicable) Dr. Lora Salazar Work Phone: Start: 09-25-[address] Nellie Salazar Work Phone: Start: 09-18-2021 Cytopathology proced ure, preparation of smear, genital source Dr. Lora Salazar Work Phone: Plan of Treatment Date Care Activity Detail Author Start: 01-20-2025 Liquid based cervica l cytology screening [facility] Start: 01-22-2022 Ambulation without limitation [facility] Work Phone: Start: 01-22-2022 Medication education [facility] Work Phone: Start: 01-22-[address] [facility] Work Phone: Start: 01-22-2022 Procedure discontinued [facility] Work Phone: Start: 01-22-2022 Taking patient vital signs [facility] Work Phone: Start: 01-22-2022 Vital signs measurements [facility] Work Phone: Start: 01-22-2022 [facility] Work Phone: Path report.final Dx Spec [facility] Patient referral [facility] Work Phone: [facility] Payers Date Payer Category Payer Private Health Insurance [id number] 2024 Self-pay [id number] 1945 [id number] Medicare [id number] Unknown [id number] Unknown [id number] Unknown [id number] Social History Date Type Detail Facility Start: 11-08-2021 End: 02-14-2022 Tobacco smoking status NHIS Unknown if ever smoked [facility] Start: 1945 Sex Assigned At Female [facility] Start: 02-14-2022 [facility] Goals Date Patient Goal Desired Activity /State Mental Status Date Assessment Result Facility 01-22-2022 Cognitive function Voice/Name [facility] Work Phone: Clinical Note 09-25-2021 Note Date & Type Note Facility 09-25-2021 Note [facility] Work Phone: Outside Reference US Procedure September 25, 2021 3:23pm Abnormal Clinical Note 09-25-2021 Note Date & Type Note Facility 09-25-2021 Note [facility] Work Phone: Outside Reference US Procedure September 25, 2021 3:23pm Abnormal Chief complaint+Reason for visit Narrative Note Date & Type Note Facility Chief complaint+Reason for visit Narrative Reason for Visit LGSIL (low grade squ amous intraepithelial dysplasia) Postmenopausal bleeding [facility] Work Phone: Chief complaint+Reason for visit Narrative Note Date & Type Note Facility Chief complaint+Reason for visit Narrative Reason for Visit LGSIL (low grade squ amous intraepithelial dysplasia) Postmenopausal bleeding [id number] LGSIL (low grade squamous intraepithelial dysplasia) [id number] LGSIL (low grade squamous intraepithelial dysplasia) [facility] Work Phone: Evaluation note Note Date & Type Note Facility Evaluation note Diagnosis Onset Date LGSIL (low grade squamous in traepithelial dysplasia) acute Postmenopausal bleeding acut e [facility] Work Phone: Evaluation note Note Date & Type Note Facility Evaluation note Diagnosis Onset Date LGSIL (low grade squamous in traepithelial dysplasia) acute Postmenopausal bleeding reso lved [id number] acute LGSIL (low grade squamous in traepithelial dysplasia) acute [id number] acute LGSIL (low grade squamous in traepithelial dysplasia) acute [facility] Work Phone: Evaluation note Note Date & Type Note Facility Evaluation note No assessment information availa ble [facility] Work Phone: Reason for referral (narrative) Note Date & Type Note Facility Reason for referral (narrative) No reason for referral information available [facility] Work Phone: Advance Directives No Advanced Directives Records Found Advance Directive Response Recorded Date/ Time Name of Medical Power of Integrity Director IDA DURAN January 15, 2022 11:04am Living Will Yes January 15, 2022 11:04am Power of Integrity Director Yes January 15 11:04am Advance Directive Response Recorded Date/ Time Living Will Yes January 15, 2022 11:04am Power of Integrity Director Yes January 15 11:04am Advance Directive Response Recorded Date/ Time Living Will Yes January 15, 2022 10:04am Power of Integrity Director Yes January 15 10:04am Summary Purpose Family History No Family History Records Found Additional Source Comments Goals (unrecognized section and content) Goals may be documented in a n alternate sectionGoals may be documented in an alternate sectionGoals may be documented in an alternate sectionGoals may be documented in an alternate section INFORMATION SOURCE (unrecogn ized section and content) DATE CREATED AUTHOR 05/14/2022 [facility] [place] DATE CREATED AUTHOR AUTHOR'S ORGANIZ ATION 01/26/[address] [facility] Care Teams (unrecognized sec tion and content) Team Status: Active Member Role Status Dates Dr. Lora Salazar MD Family Provider Active Dr. Lora Salazar MD Primary Care Provider Active Team Status: Inactive Member Role Status Dates Dr. Lora Salazar MD Primary Care Prov ider, Attending Provider, Referring Provider Active Team Status: Inactive Member Role Status Dates Dr. Lora Salazar MD Primary Care Provider Active Start: January 20, 2025 End: January 20, 2025 Dr. Lora Salazar MD Attending Provider Active Start: January 20, 2025 End: January 20, 2025 FOR RECORDS PERTAINING TO PATIENTS WHO ARE OR HAVE BEEN ENROLLED IN A CHEMICAL DEPENDENCY/SUBSTANCEABUSE PROGRAM, SOME INFORMATION MAY BE OMITTED. This clinical summary was aggregated from multiple sources. Caution should be exercised in using it in the provision of clinical care. This summary normalizes information from multiple sources, and as a consequence, information in this document may materially change the coding, format and clinical context of patient data. In addition, data may be omitted in some cases. CLINICAL DECISIONS SHOULD BE BASED ON THE PRIMARY CLINICAL RECORDS. [facility]. provides no warranty or guarantee of the accuracy or completeness of information in this document.
== END | disposition home or self-care (01) ==
LOC: BFHLAB 12:08
PROVIDERS: PCP Family Medicine; Visit Provider Family Medicine
DX: I10 Essential (primary) hypertension (principal)
CPT/HCPCS: 36415; 80048; 85025